=== PATIENT | female | born 1995 | race Caucasian/White ===

== ENCOUNTER 2019-02-28 12:47 | Observation (INO) | payer MEDICAID | END 2019-02-28 13:45 | disposition home or self-care (01) | LOC: 8 EST LDRP 12:47 | PROVIDERS: ADMIT Obstetrics & Gynecology; ATTEND Obstetrics & Gynecology | DX: O62.9 Abnormality of forces of labor, unspecified (principal); Z3A.26 26 weeks gestation of pregnancy | CPT/HCPCS: 99281; G0378 ==

== ENCOUNTER 2019-06-01 21:14 | Observation (INO) | payer MEDICAID ==
[~2019-06-01] VITALS: Ht 152.4 cm; Wt 77.1 kg
[2019-06-01] MEDS ORDERED: LACTATED RINGERS 1,000 ML IV SCH (21:19)
[2019-06-01 22:49] LABS: CHLORIDE 110 mEq/L (98-107)
[2019-06-01 23:17] LABS: D-DIMER 1.82 mg/L FEU (<0.50); INR 0.9; PARTIAL THROMBOPLASTIN TIME 28.1 sec (23.4-31.0); PROTHROMBIN TIME 9.3 sec (9.6-11.0)
[2019-06-01] MEDS ORDERED: PNV1TABL50 MT (23:37)
== END 2019-06-01 23:53 | disposition home or self-care (01) ==
LOC: 8 EST LDRP 21:14
PROVIDERS: ADMIT Obstetrics & Gynecology; ATTEND Obstetrics & Gynecology
DX: O62.9 Abnormality of forces of labor, unspecified (principal); Z3A.39 39 weeks gestation of pregnancy
CPT/HCPCS: 36415; 80053; 84550; 85379; 85384; 85610; 85730; 99281; G0378; 96360; 96361

== ENCOUNTER 2019-06-09 12:33 | Inpatient (IN) | payer MEDICAID ==
[~2019-06-09] VITALS: Ht 152.4 cm; Wt 77.1 kg
[~2019-06-09 12:33] MED LIST: LIDOCAINE HCL 2%/EPINEPHRINE 1:100,000 20 ML VIAL INFIL ONE; PNV1TABL50 MT
[2019-06-09] MEDS ORDERED: CARBOPROST TROMETHAMINE 250 MCG/ML AMPUL IM PRN (18:00)
[2019-06-09] MEDS ORDERED: LIDOCAINE HCL 1% 20ML VIAL (Pyxis) INJ INFIL SCH (18:00)
[2019-06-09] MEDS ORDERED: METHYLERGONOVINE MALEATE 0.2 MG/ML IM PRN (18:00)
[2019-06-09] MEDS ORDERED: NALOXONE HCL 0.4 MG/ML 1ML VIAL IM PRN (18:00)
[2019-06-09] MEDS ORDERED: NALOXONE HCL 0.4 MG/ML 1ML VIAL IV PRN (18:00)
[2019-06-09 18:39] LABS: BASOPHILS % 0.4 % (0.0-2.0); EOSINOPHILS % 0.2 % (0.0-5.0); HEMATOCRIT. 40.6 % (36.0-48.0); HEMOGLOBIN. 13.8 g/dL (12.0-16.0); LYMPHOCYTES % 13.3 % (20.0-50.0); MEAN CORPUSCULAR HEMOGLOBIN 29.6 pg (28.0-32.0); MEAN CORPUSCULAR VOLUME 87.2 fL (81.0-99.0); MEAN PLATELET VOLUME 10.3 fl (7.4-10.4); MONOCYTES % 5.2 % (2.0-8.0); NEUTROPHILS % 80.9 % (40.0-76.0); PLATELET 175 x1000/uL (130-400); RED BLOOD CELL COUNT 4.65 mill/uL (4.2-5.4); RED CELL DISTRIBUTION WIDTH 14.5 % (11.6-14.6)
[2019-06-09 18:47] LABS: INR 0.9; PARTIAL THROMBOPLASTIN TIME 28.3 sec (23.4-31.0); PROTHROMBIN TIME 9.3 sec (9.6-11.0)
[2019-06-09 19:07] LABS: *COCAINE SCREEN URINE NEGATIVE (NEGATIVE); METHADONE URINE SCREEN NEGATIVE (NEGATIVE); OPIATES URINE SCREEN NEGATIVE (NEGATIVE); PHENCYCLIDINE URINE SCREEN NEGATIVE (NEGATIVE)
[2019-06-09 19:08] LABS: *AMPHETAMINES SCREEN URINE NEGATIVE (NEGATIVE); *BARBITURATES SCREEN URINE NEGATIVE (NEGATIVE); *BENZODIAZEPINES SCREEN URINE NEGATIVE (NEGATIVE); CANNABINOID URINE SCREEN NEGATIVE (NEGATIVE)
[2019-06-09 19:29] LABS: HEPATITIS B SURFACE ANTIGEN NEGATIVE
[2019-06-09] MEDS: CLINDAMYCIN 900 MG in DEXTROSE 5% WATER 50 ML IV SCH (20:03)
[2019-06-09] MEDS: MISOPROSTOL 100MCG TABLET VG SCH (20:04)
[2019-06-09] MEDS: DEXT 5%/LACTATED RINGERS 1,000 ML IV SCH (21:42)
[2019-06-10] MEDS: DEXT 5%/LACTATED RINGERS 1,000 ML IV SCH (00:13)
[2019-06-10] MEDS: MISOPROSTOL 100MCG TABLET VG SCH ×2 (00:13→04:17)
[2019-06-10] MEDS: BUTORPHANOL TARTRATE 2 MG/ML VIAL IV PRN ×2 (00:40→06:16)
[2019-06-10] MEDS: CLINDAMYCIN 900 MG in DEXTROSE 5% WATER 50 ML IV SCH (04:17)
[2019-06-10] MEDS ORDERED: VITAMIN D (07:35)
[2019-06-10] MEDS ORDERED: ROPIVACAINE HCL/PF EPIDURAL 200 ML EP SCH (08:45)
[2019-06-10] MEDS ORDERED: LACTATED RINGERS 1,000 ML IV SCH (09:00)
[2019-06-10] MEDS ORDERED: CITRIC ACID/SODIUM CITRATE SOLN 30ML UDC PO SCH (10:30)
[2019-06-10] MEDS ORDERED: DEXT 5%/LR + PITOCIN 20UNITS/L 1,000 ML IV SCH ×2 (12:17→19:31)
[2019-06-10] MEDS ORDERED: ONDANSETRON HCL 4MG/2ML INJ IV PRN (12:30)
[2019-06-10] MEDS ORDERED: KETOROLAC 30MG/ML VIAL IV PRN (12:30)
[2019-06-10] MEDS ORDERED: DIPHENHYDRAMINE 50MG/ML VIAL IV PRN (12:30)
[2019-06-10] MEDS ORDERED: MEPERIDINE HCL/PF 25MG/ML CPJ IV PRN (12:30)
[2019-06-10] MEDS ORDERED: METOCLOPRAMIDE HCL 10MG/2ML VIAL IV PRN (12:30)
[2019-06-10 14:40] VITALS: BP 111/68
[2019-06-10 15:10] VITALS: BP 120/72
[2019-06-10] MEDS ORDERED: HYDROMORPHONE HCL/PF 2MG/ML CPJ IM PRN (19:45)
[2019-06-10] MEDS ORDERED: BISACODYL 10MG SUPP PR PRN (19:45)
[2019-06-10] MEDS ORDERED: RHO(D) IMMUNE GLOBULIN 300 MCG/SYR IM PRN (19:45)
[2019-06-10] MEDS ORDERED: IBUPROFEN 400MG TABLET PO PRN (19:45)
[2019-06-10 20:40] VITALS: BP 116/67
[2019-06-11] MEDS ORDERED: KETOROLAC 30MG/ML VIAL IV PRN (00:45)
[2019-06-11 03:50] VITALS: BP 121/70
[2019-06-11 05:20] VITALS: BP 118/77
[2019-06-11 07:18] LABS: BASOPHILS % 0.2 % (0.0-2.0); HEMATOCRIT. 38.3 % (36.0-48.0); HEMOGLOBIN. 12.9 g/dL (12.0-16.0); LYMPHOCYTES % 9.4 % (20.0-50.0); MEAN CORPUSCULAR HEMOGLOBIN 29.7 pg (28.0-32.0); MEAN CORPUSCULAR VOLUME 88.2 fL (81.0-99.0); MEAN PLATELET VOLUME 9.8 fl (7.4-10.4); MONOCYTES % 7.4 % (2.0-8.0); PLATELET 151 x1000/uL (130-400); RED BLOOD CELL COUNT 4.34 mill/uL (4.2-5.4); RED CELL DISTRIBUTION WIDTH 14.4 % (11.6-14.6)
[2019-06-11 08:24] VITALS: BP 118/75
[2019-06-11] MEDS: IBUPROFEN 800MG TABLET PO PRN ×2 (11:43→20:26)
[2019-06-11 16:00] VITALS: BP 106/63
[2019-06-11 20:00] VITALS: BP 108/62
[2019-06-12] MEDS: IBUPROFEN 800MG TABLET PO PRN ×4 (03:51→22:29)
[2019-06-12 03:57] VITALS: BP 101/60
[2019-06-12 08:38] VITALS: BP 108/65
[2019-06-12 14:50] VITALS: BP 119/67
[2019-06-12 19:30] VITALS: BP 109/57
[2019-06-13] VITALS: BP 112/60
[2019-06-13 04:00] VITALS: BP_SYST 110; BP_DIAS 62; BP_DIAS 64
[2019-06-13 07:42] VITALS: BP 109/67
[2019-06-13] MEDS: IBUPROFEN 800MG TABLET PO PRN (08:24)
[2019-06-13 09:53] VITALS: BP 109/67
== END 2019-06-13 14:55 | disposition home or self-care (01) | DRG 540 ==
LOC: 8 EST LDRP 12:33 → OBSVTOIN 12:33 → 8 EST LDRP 13:04 → 8EST 06-10 13:35
PROVIDERS: ADMIT Obstetrics & Gynecology; ATTEND Obstetrics & Gynecology
PROC: 10D00Z1 Extraction of Products of Conception, Low, Open Approach (ICD-10-PCS; principal; 2019-06-10)
DX: O99.824 Streptococcus B carrier state complicating childbirth (principal); O41.03X0 Oligohydramnios, third trimester, not applicable or unspecified; O64.0XX0 Obstructed labor due to incomplete rotation of fetal head, not applicable or unspecified; O77.9 Labor and delivery complicated by fetal stress, unspecified; Z3A.40 40 weeks gestation of pregnancy; Z37.0 Single live birth; Z83.3 Family history of diabetes mellitus
CPT/HCPCS: 36415; 76805; 76818; 80305; 86592; 86703; 86762; 86850; 86900; 87340; 88307; G0378; J0595; J1885; J2590; J2795; J3490; J7060; J7120; A4315